=== PATIENT | male | born 1980 | race Caucasian/White ===

== ENCOUNTER 2020-01-17 21:32 | Emergency (ER) | payer SELFPAY ==
[2020-01-17 21:46] VITALS: BP 146/82; PULSE 71; RESP 15; TEMP 36.1; O2SAT 95; BMI 31.3
[2020-01-18] VITALS: PULSE 100; RESP 18
[2020-01-18 02:19] VITALS: PULSE 99; RESP 18; O2SAT 100
[2020-01-18] MEDS: Lidocaine HCl 2 % MPF 5 ML VIAL 20 ML SUBCUT ×2 (02:25)
--- NOTE | 2020-01-18 03:09 | ED.WOUNDLAC ---
HPI - Wound/Laceration General Chief Complaint: Wound/Laceration Stated Complaint: laceration Time Seen by Provider: 01/18/20 00:41 Source: patient Mode of arrival: ambulatory Limitations: no limitations History of Present Illness HPI narrative: patient comes to emergency room complaining of a laceration to the forearm. Patient states he was at work, metal slipped and went into his arm. Patient states he has localized pain. States he had his tetanus shot less than 5 years ago, thinks it has been approximately 4 years. Related Data Previous Rx's Medication Instructions Recorded cephalexin 500 mg PO Q12H #14 cap 01/18/20 doxycycline hyclate 100 mg PO DAILY #7 cap 01/18/20 Allergies Allergy/AdvReac Type Severity Reaction Status Date / Time No Known Allergies Allergy Verified 01/17/20 21:46 Review of Systems Review of Systems: Constitutional : No Weight loss, No Fever, No Chills, No Night Sweats, No Fatigue, No Malaise ENT/Mouth : No Hearing loss, No Ear Pain, No Nasal Congestion, No Sinus Pain, No Hoarseness, No sore throat, No Rhinorrhea, No Swallowing Difficulty Eyes: No Eye Pain, No Swelling, No Redness, No Foreign Body, No Discharge, No Vision Changes Cardiovascular : No Chest Pain, No SOB, No Dyspnea on Exertion, No Orthopnea, No Edema, No Palpitations Respiratory : No Cough, No Sputum, No Wheezing, No Smoke Exposure, No Dyspnea Gastrointestinal : No Nausea, No Vomiting, No Diarrhea, No Constipation, No abdominal Pain, No Hematochezia, No Melena Genitourinary : no irregular bleeding, No Dysuria, No Urinary Frequency, No Hematuria, No Urinary Incontinence, No Urgency, No Flank Pain, No Urinary Flow Changes, No Hesitancy Musculoskeletal : No joint pain, No Myalgias, No Joint Swelling Skin : Deep laceration to the right arm Neuro : No Weakness, No Numbness, No Paresthesias, No Loss of Consciousness, No Dizziness, No Headache Psych : No Anxiety/Panic, No Depression, No SI/HI/AH/VH, No Social Issues, Heme/Lymph: No Bruising, No Bleeding,No Lymphadenopathy Endocrine : No Polyuria, No Polydipsia, No Temperature Intolerance PMFSH Past Medical History Medical History Hyperlipidemia Social History Social History Smoking Status: Unknown if ever smoked Use of substances other than those prescribed or required for medical reasons: No Advance Directives: No Physical Exam Vital Signs: Vital Signs: Last Vital Signs Temp 97.0 F 01/17/20 21:46 Pulse 99 01/18/20 02:19 Resp 18 01/18/20 02:19 BP 146/82 H 01/17/20 21:46 Pulse Ox 100 01/18/20 02:19 Body Mass Index 31.3 Appearance: Alert. Oriented X3. No acute distress. Eyes: Pupils equal, round and reactive to light. ENT: Pharynx normal. Neck: Normal inspection. Neck supple. No lymph nodes noted. No crepitus CVS: Normal heart rate and rhythm. Pulses normal. Normal S1 and S2 Respiratory: No respiratory distress. Breath sounds normal. No Wheezing. No rales Abdomen: Soft and nontender. No rigidity. No distention. good BS x4 Skin: Skin warm and dry. Normal skin color. Normal skin turgor. Extremities: right arm on the frontal aspect just below the anterior cubital fossa patient has a deep laceration approximately 7 cm long. The cut is deep, going through the facia into the muscle. Patient is able to flex and extend all fingers, wrist and elbow with no difficulty. No tendons visualized. Neuro: Oriented X 3. No motor deficit. No sensory deficit. Moving all extermities. No slurred speech. Course Course Course Narrative: 1 x 6 florid an a bloodless field, the patient does go beyond the aphasia into the muscle, no tendons visualized, with a gloved finger the wound was explored under localized anesthesia, the patient does not go any further than the muscle, no bone palpated. No ligaments rupture. Patient's laceration was repaired in 3 different layers. Procedures Laceration Laceration 1: Site: other ( Right upper arm) Side (If applicable): right Size (cm): 8 Depth: involves muscle layer Local Anesthetic: lidocaine 2% Amount of anesthesia used (mL): 30 Pre-repair: wound explored, irrigated extensively and deep structures intact Size (cm): 4-0 Number of sutures: 16 Subcutaneous layer closed with: vicryl Size: 3-0 Technique: running Muscle layer closed with: vicryl Size: 4-0 Number of sutures: 7 Technique: simple, interrupted MDM - Wound/Laceration MDM Narrative Medical decision making narrative: given that the patient's laceration is very deep, going through the aphasia, we will go ahead and prescribe antibiotics. First dose given in the emergency room prior to discharge Discharge Plan Discharge Clinical Impression: Laceration Patient Disposition: Home, Self-Care Instructions: Laceration (ED) Additional Instructions: Your ditches need to be removed in 7-10 days. Please follow-up with your new primary care physician. Prescriptions: New doxycycline hyclate 100 mg capsule 100 mg PO DAILY Qty: 7 RF: 0 cephalexin 500 mg capsule 500 mg PO Q12H Qty: 14 RF: 0
[2020-01-18] MEDS: cephALEXin 500 MG CAPSULE PO (03:48)
== END 2020-01-18 03:54 | disposition home or self-care (01) ==
PROVIDERS: Emergency Provider Emergency Medicine
DX: S51.811A Laceration without foreign body of right forearm, initial encounter (principal); S50.811A Abrasion of right forearm, initial encounter; W26.9XXA Contact with unspecified sharp object(s), initial encounter; Y93.9 Activity, unspecified; Y92.9 Unspecified place or not applicable; Y99.0 Civilian activity done for income or pay; M79.631 Pain in right forearm
CPT/HCPCS: 12034; 90471; 90715; 99284

== ENCOUNTER 2020-01-25 11:52 | Emergency (ER) | payer SELFPAY ==
[2020-01-25 12:14] VITALS: PULSE 90; RESP 20; TEMP 36.7; O2SAT 97; BMI 31.0
--- NOTE | 2020-01-25 12:24 | ED_ITS ---
HPI - Recheck/Abnormal Lab/Rx General Chief Complaint: General Medical Stated Complaint: suture removal Time Seen by Provider: 01/25/20 12:18 Source: patient Mode of arrival: ambulatory Limitations: language barrier ( [place]ic-speaking) History of Present Illness HPI narrative: 39-year-old male presenting to the ED with complaints of suture removal after he was seen here on 01/18/2020 and had 16 sutures placed to right upper arm. patient was prescribed Keflex and doxycycline reports he finished his antibiotics yesterday. Denies any additional complaints or concerns at this time. MD complaint: suture/staple removal Related Data Previous Rx's Medication Instructions Recorded cephalexin 500 mg PO Q12H #14 cap 01/18/20 doxycycline hyclate 100 mg PO DAILY #7 cap 01/18/20 Allergies Allergy/AdvReac Type Severity Reaction Status Date / Time No Known Allergies Allergy Verified 01/17/20 21:46 Review of Systems Review of Systems: Constitutional : No Fever, No Chills, Cardiovascular : No Chest Pain, No SOB Respiratory : No Dyspnea Gastrointestinal : No abdominal pain Musculoskeletal : No Joint Swelling Skin : positive wound c sutures in place, No Foreign bodies, No rash, No surrounding erythema Neuro : No Weakness, No Numbness/tingling Psych : No SI/HI/thoughts of self injury Yes all other systems are reviewed and are negative FOR[facility]LY [facility], [facility] Past Medical History Attestation statement: The following information was validated with the patient. Medical History Hyperlipidemia Social History Social History Smoking Status: Unknown if ever smoked Advance Directives: No Advance Directives Information Provided: Yes Physical Exam Vital Signs: Vital Signs: Last Vital Signs Temp 98.0 F 01/25/20 12:14 Pulse 90 01/25/20 12:14 Resp 20 01/25/20 12:14 Pulse Ox 97 01/25/20 12:14 Body Mass Index 31.0 vital signs have been reviewed as normal and appeared to be correct. Blood pressure normal. Heart rate normal. Respiration rate normal. Temperature normal. Oxygen saturation normal. Appearance: Alert. Oriented X3. No acute distress. Head: Normal external exam. Eyes: PERRLA. EOMI. Conjunctiva and sclera normal. Eyelids normal. ENT: Pharynx normal. Uvula midline. Moist mucous membranes. No trismus noted. No drooling noted. No muffled voice noted. Neck: Normal inspection. Neck supple. FROM. No adenopathy. Thyroid Normal. No meningeal signs. No neck mass noted. CVS: Normal heart rate and rhythm. Heart sound normal. No murmurs noted. Pulses normal throughout. Respiratory: No respiratory distress. Painless inspiration. Back: Full range of motion noted. Skin: Skin warm and dry. Normal skin color. Normal skin turgor. No rashes noted. well-healing laceration with [address] to right upper arm with mild surrounding erythema at the margins otherwise no streaking /induration / fluctuance / drainage noted. Extremities: Extremities exhibit normal range of motion. Extremities nontender. Neuro: Oriented X 3. No motor deficit. No sensory deficit. Reflexes normal. Course Course Course Narrative: Patient is now status post suture removal. Dehiscence of the wound therefore 5 Steri-Strips were placed. Instructed patient to return if any new or worsening symptoms to follow-up with primary care provider. Patient understands agrees the plan. MDM - Recheck/Abnormal Lab/Rx Medical Records Attestation: I reviewed the patient's medical records. Discharge Plan Discharge Clinical Impression: Visit for suture removal, Dehiscence of closure of skin Patient Disposition: Home, Self-Care Instructions: Stitches Removal (ED) Prescriptions: No Action doxycycline hyclate 100 mg capsule 100 mg PO DAILY Qty: 7 RF: 0 cephalexin 500 mg capsule 500 mg PO Q12H Qty: 14 RF: 0 Referrals: Physician,None [Primary Care Provider] - 2 days (your pcp) Print Language: [place]ic
== END 2020-01-25 12:39 | disposition home or self-care (01) ==
LOC: HO.ED 12:23
PROVIDERS: Emergency Provider Emergency Medicine
DX: Z48.02 Encounter for removal of sutures (principal); T81.30XA Disruption of wound, unspecified, initial encounter; Y83.9 Surgical procedure, unspecified as the cause of abnormal reaction of the patient, or of later complication, without mention of misadventure at the time of the procedure; Y92.9 Unspecified place or not applicable
CPT/HCPCS: 99283